=== PATIENT | female | born 1950 | race Caucasian/White ===

== ENCOUNTER → 2017-11-18 | Outpatient (CLI) | payer MEDICARE ==
[~2017-11-18] MED LIST: CEPH-368 PO; HYDR-882 PO; ONDA4TAB7 PO; SERT100T PO
== END | disposition home or self-care (01) ==
LOC: CFH 10:25
PROVIDERS: ATTEND Internal Medicine Gastroenterology
DX: R15.9 Full incontinence of feces (principal); R19.4 Change in bowel habit; R14.0 Abdominal distension (gaseous); R12 Heartburn
CPT/HCPCS: 74018

== ENCOUNTER → 2017-12-22 | Outpatient (CLI) | payer MEDICARE | END | disposition home or self-care (01) | LOC: CFH 12:57 | PROVIDERS: ATTEND Obstetrics & Gynecology | DX: N63.12 Unspecified lump in the right breast, upper inner quadrant (principal); Z86.000 Personal history of in-situ neoplasm of breast; Z90.12 Acquired absence of left breast and nipple | CPT/HCPCS: 77065 ==

== ENCOUNTER → 2018-03-18 | Outpatient (CLI) | payer MEDICARE ==
[~2018-03-18] MED LIST changes: +OMNIPAQUE 350 MG/ML, 75ML BOTTLE ONE
== END | disposition home or self-care (01) ==
LOC: CFH 12:05
PROVIDERS: ATTEND Nurse Practitioner Family
DX: D25.0 Submucous leiomyoma of uterus (principal); N83.201 Unspecified ovarian cyst, right side; N83.202 Unspecified ovarian cyst, left side; J98.11 Atelectasis; J84.10 Pulmonary fibrosis, unspecified; Z90.12 Acquired absence of left breast and nipple
CPT/HCPCS: 71260; 76830; 82565; Q9967

== ENCOUNTER 2018-04-08 10:16 | Day surgery (SDC) | payer MEDICARE ==
[~2018-04-08] VITALS: Ht 167.6 cm; Wt 71.0 kg
[~2018-04-08 10:16] MED LIST changes: +CALCIUM PO; +CHOL10002 PO; +MAGNESIUM PO; -OMNIPAQUE 350 MG/ML, 75ML BOTTLE ONE; +ROSU10TA PO; +UBID100C19 PO
[2018-04-08 10:53] VITALS: BP 128/84
[2018-04-08] MEDS ORDERED: ONDANSETRON ODT 8 MG PO ONE (11:00)
[2018-04-08] MEDS ORDERED: GABAPENTIN 300 MG CAPSULE PO ONE (11:00)
[2018-04-08] MEDS ORDERED: ACETAMINOPHEN 500 MG TABLET PO ONE (11:00)
[2018-04-08] MEDS ORDERED: OxyconTIN ER 10 MG TAB.ER PO ONE (11:00)
[2018-04-08] MEDS ORDERED: MIDAZOLAM 1 MG/ML, 2ML ONE (11:18)
[2018-04-08] MEDS ORDERED: FENTANYL PF 250 MCG/5ML ONE (11:18)
[2018-04-08] MEDS ORDERED: NEOSTIGMINE 1 MG/ML, 10ML ONE (11:19)
[2018-04-08] MEDS ORDERED: GLYCOPYRROLATE 0.4 MG/2 ML, 2ML ONE ×2 (11:19→12:38)
[2018-04-08] MEDS ORDERED: ROCURONIUM 10MG/ML,5ML ONE (11:19)
[2018-04-08] MEDS ORDERED: LACTATED RINGERS 1,000 ML IV SCH (11:21)
[2018-04-08] MEDS ORDERED: PROPOFOL 10 MG/ML, 20ML ONE (11:22)
[2018-04-08] MEDS ORDERED: BUPIVACAINE 0.25% ONE (11:34)
[2018-04-08] MEDS ORDERED: SILVER NITRATE STICK TP ONE (11:35)
[2018-04-08] MEDS ORDERED: ONDANSETRON 2MG/ML, 2ML ONE (11:56)
[2018-04-08] MEDS ORDERED: KETOROLAC 30 MG/1 ML ONE (11:56)
[2018-04-08] MEDS ORDERED: DEXAMETHASONE 4 MG/ML, 1ML ONE ×2 (11:56)
[2018-04-08] MEDS ORDERED: PROMETHAZINE 25 MG/ML, 1ML IV PRN (12:00)
[2018-04-08] MEDS ORDERED: ONDANSETRON 2MG/ML, 2ML IV PRN (12:00)
[2018-04-08] MEDS ORDERED: OXYcodone 5 MG/5 ML ORAL.SOL UDC PO PRN (12:00)
[2018-04-08] MEDS ORDERED: PROMETHAZINE 25 MG SUPP PR PRN (12:00)
[2018-04-08] MEDS ORDERED: LABETALOL 5MG/ML, 20ML IV PRN (12:00)
[2018-04-08] MEDS ORDERED: ACETAMINOPHEN 325 MG TABLET PO PRN (12:00)
[2018-04-08] MEDS ORDERED: FENTANYL PF 100 MCG/2ML IV PRN (12:00)
[2018-04-08] MEDS ORDERED: ONDANSETRON ODT 8 MG PO PRN (12:00)
[2018-04-08] MEDS ORDERED: HYDROmorphone 1 MG/ML, 1ML IV PRN (12:00)
[2018-04-08] MEDS ORDERED: hydrALAzine 20 MG/ML, 1ML IV PRN (12:00)
[2018-04-08] MEDS ORDERED: PROMETHAZINE 12.5 MG SUPP PR PRN (12:00)
[2018-04-08] MEDS ORDERED: MEPERIDINE/PF 25MG/0.5ML IVPush PRN (12:00)
[2018-04-08] MEDS ORDERED: OXYcodone 5 MG/5 ML ORAL.SOL UDC ONE (13:16)
== END 2018-04-08 18:15 | disposition home or self-care (01) ==
LOC: OUT 10:16
PROVIDERS: ATTEND Obstetrics & Gynecology
DX: N83.292 Other ovarian cyst, left side (principal); N83.291 Other ovarian cyst, right side; N83.8 Other noninflammatory disorders of ovary, fallopian tube and broad ligament; E78.5 Hyperlipidemia, unspecified; F32.9 Major depressive disorder, single episode, unspecified; Z88.5 Allergy status to narcotic agent; Z98.890 Other specified postprocedural states; M81.0 Age-related osteoporosis without current pathological fracture; Z90.49 Acquired absence of other specified parts of digestive tract; Z87.891 Personal history of nicotine dependence; Z85.3 Personal history of malignant neoplasm of breast; Z90.12 Acquired absence of left breast and nipple; Z83.3 Family history of diabetes mellitus; Z83.6 Family history of other diseases of the respiratory system; Z82.49 Family history of ischemic heart disease and other diseases of the circulatory system; Z79.899 Other long term (current) drug therapy
CPT/HCPCS: 58661; 88305; 93005; J1100; J1885; J2250; J2405; J2704; J2710; J3010; J3490; J7120; Q0162

== ENCOUNTER → 2018-06-07 | Outpatient (CLI) | payer MEDICARE ==
[~2018-06-07] MED LIST changes: +HYDR-3653 PO; -HYDR-882 PO; +REGADENOSON 0.4 MG/5 ML SYRINGE ONE; +UBID100C10 PO; -UBID100C19 PO
== END | disposition home or self-care (01) ==
LOC: CFH 07:43
PROVIDERS: ATTEND Internal Medicine Cardiovascular Disease
DX: I08.0 Rheumatic disorders of both mitral and aortic valves (principal); E78.5 Hyperlipidemia, unspecified; R00.1 Bradycardia, unspecified; C50.919 Malignant neoplasm of unspecified site of unspecified female breast; Z87.891 Personal history of nicotine dependence
CPT/HCPCS: 78452; 93017; 93306; A9502; J2785

== ENCOUNTER 2018-07-27 10:16 | Inpatient (IN) | payer MEDICARE ==
[2018-07-25 08:45] LABS: BASOPHILS # (AUTO) 0.02 x10^3/uL (0-0.1); BASOPHILS % (AUTO) 1 % (0-1); EOSINOPHILS # (AUTO) 0.13 x10^3/uL (0-0.4); EOSINOPHILS % (AUTO) 3 % (1-7); LYMPHOCYTES # (AUTO) 1.55 x10^3/uL (1-3.4); LYMPHOCYTES % (AUTO) 33 % (22-44); MD NO; MEAN CORPUSCULAR HEMOGLOBIN 27.6 pg (27.0-34.8); MEAN CORPUSCULAR HGB CONC 33.3 g/dL (32.4-35.8); MEAN CORPUSCULAR VOLUME 82.8 fL (80-100); MEAN PLATELET VOLUME 8.1 fL (7.4-10.4); MONOCYTES # (AUTO) 0.41 x10^3/uL (0.2-0.8); MONOCYTES % (AUTO) 9 % (2-9); NEUTROPHILS # (AUTO) 2.55 x10^3/uL (1.8-6.8); NEUTROPHILS % (AUTO) 55 % (42-75); PLATELET COUNT 260 x10^3/uL (130-400); RED BLOOD COUNT 5.01 x10^6/uL (3.82-5.3); RED CELL DISTRIBUTION WIDTH 18.2 % (9.6-15.2)
[2018-07-25 08:53] LABS: ALANINE AMINOTRANSFERASE 31 U/L (12-78); ALBUMIN 3.5 g/dL (3.4-5.0); ANION GAP 5 mmol/L (5-15); CALCIUM 8.8 mg/dL (8.5-10.1); CHLORIDE 105 mmol/L (98-107); CREATININE 0.75 mg/dL (0.55-1.02)
[2018-07-25 08:56] LABS: ALKALINE PHOSPHATASE 48 U/L (45-117); BILIRUBIN,TOTAL 0.4 mg/dL (0.2-1.0)
[~2018-07-27] VITALS: Ht 167.6 cm; Wt 72.5 kg
[~2018-07-27 10:16] MED LIST changes: +BIOTIN PO; +KRILL OIL PO; +LACT1CAP4 PO; -REGADENOSON 0.4 MG/5 ML SYRINGE ONE
[2018-07-27] MEDS ORDERED: CEFAZOLIN PMX 1GM/50ML 50 ML IVPB ONE (11:00)
[2018-07-27] MEDS ORDERED: MIDAZOLAM 1 MG/ML, 2ML ONE (12:14)
[2018-07-27] MEDS ORDERED: LIDOCAINE/PF 1%, 30ML ONE (12:15)
[2018-07-27] MEDS ORDERED: CEFAZOLIN PMX 1GM/50ML 50 ML ONE (12:15)
[2018-07-27] MEDS ORDERED: CEFAZOLIN 1,000 MG ONE (12:15)
[2018-07-27] MEDS ORDERED: FENTANYL PF 100 MCG/2ML ONE (12:15)
[2018-07-27] MEDS ORDERED: HOLD MEDICATION MC PRN (14:00)
[2018-07-27] MEDS ORDERED: HYDROcodone/APAP 5/325 TABLET PO PRN (14:00)
[2018-07-27] MEDS ORDERED: ZOLPIDEM 5MG TABLET PO PRN (14:00)
[2018-07-27] MEDS ORDERED: ONDANSETRON 2MG/ML, 2ML IV PRN (14:00)
[2018-07-27] MEDS ORDERED: ACETAMINOPHEN 325 MG TABLET ONE (15:35)
[2018-07-27] MEDS: ACETAMINOPHEN 325 MG TABLET PO PRN ×2 (15:42→20:59)
[2018-07-27] MEDS: SODIUM CHLORIDE 0.9% 1,000 ML IV SCH ×2 (17:16→17:17)
[2018-07-27 17:23] VITALS: BP 155/81
[2018-07-27 19:20] VITALS: BP 131/81
[2018-07-27] MEDS: SODIUM CHLORIDE FLUSH 10ML SYR IVF SCH (20:57)
[2018-07-27] MEDS: CEFAZOLIN PMX 1GM/50ML 50 ML IVPB SCH (20:58)
[2018-07-27] MEDS ORDERED: ROSUVASTATIN CALCIUM 10 MG PO SCH (21:00)
[2018-07-28] VITALS: BP 143/80
[2018-07-28] MEDS: SODIUM CHLORIDE 0.9% 1,000 ML IV SCH ×2 (02:20→07:39)
[2018-07-28] MEDS: ACETAMINOPHEN 325 MG TABLET PO PRN ×2 (02:27→07:42)
[2018-07-28] MEDS: CEFAZOLIN PMX 1GM/50ML 50 ML IVPB SCH ×2 (05:01→11:19)
[2018-07-28 07:06] VITALS: BP 129/82
[2018-07-28] MEDS: SODIUM CHLORIDE FLUSH 10ML SYR IVF SCH (07:39)
[2018-07-28] MEDS ORDERED: LACTOBACILLUS CHEW TABLET PO SCH (09:00)
[2018-07-28] MEDS ORDERED: MAGNESIUM OXIDE 400 MG TABLET PO SCH (09:00)
[2018-07-28] MEDS ORDERED: UBIDECARENONE 300 MG PO SCH (09:00)
[2018-07-28] MEDS ORDERED: CHOLECALCIFEROL 1,000 UNIT TABLET PO SCH (09:00)
[2018-07-28] MEDS ORDERED: ACET325T14 PO (10:15)
[2018-07-28] MEDS ORDERED: ROSUVASTATIN CALCIUM 10 MG PO SCH (21:00)
[2018-07-28] MEDS ORDERED: ATORVASTATIN 40 MG TABLET PO SCH (21:00)
== END 2018-07-28 11:42 | disposition home or self-care (01) | DRG 242 ==
LOC: CACL 10:16 → ORIP 13:38 → 5SO 17:00 → DCLOUNGE 07-28 11:30
PROVIDERS: ADMIT Internal Medicine Cardiovascular Disease; ATTEND Internal Medicine Cardiovascular Disease
PROC: 0JH606Z Insertion of Pacemaker, Dual Chamber into Chest Subcutaneous Tissue and Fascia, Open Approach (ICD-10-PCS; principal; 2018-07-27)
PROC: 02HK3JZ Insertion of Pacemaker Lead into Right Ventricle, Percutaneous Approach (ICD-10-PCS; 2018-07-27)
PROC: 02H63JZ Insertion of Pacemaker Lead into Right Atrium, Percutaneous Approach (ICD-10-PCS; 2018-07-27)
DX: I49.5 Sick sinus syndrome (principal); J96.21 Acute and chronic respiratory failure with hypoxia; I35.1 Nonrheumatic aortic (valve) insufficiency; E78.00 Pure hypercholesterolemia, unspecified; E11.9 Type 2 diabetes mellitus without complications; I25.10 Atherosclerotic heart disease of native coronary artery without angina pectoris; Z88.6 Allergy status to analgesic agent
CPT/HCPCS: 33208; 36415; 71045; 71046; 80053; 85025; 93005; 99156; 99157; C1779; C1785; C1892; G0378; J0690; J2250; J3010; J3490; Q9967

== ENCOUNTER 2019-12-19 13:29 | Outpatient (CLI) | payer MEDICARE ==
[~2019-12-19 13:29] MED LIST changes: +ACET325T14 PO; -ROSU10TA PO; +ROSU10TA2 PO
== END 2019-12-19 23:59 | disposition home or self-care (01) ==
LOC: CFH 13:29
PROVIDERS: ATTEND Internal Medicine Cardiovascular Disease
DX: I08.3 Combined rheumatic disorders of mitral, aortic and tricuspid valves (principal); I25.10 Atherosclerotic heart disease of native coronary artery without angina pectoris
CPT/HCPCS: 93306; 93356

== ENCOUNTER → 2020-06-20 | Outpatient (CLI) | payer MEDICARE | END | disposition home or self-care (01) | LOC: CFH 08:07 | PROVIDERS: ATTEND Internal Medicine Cardiovascular Disease | DX: I10 Essential (primary) hypertension (principal); I25.10 Atherosclerotic heart disease of native coronary artery without angina pectoris | CPT/HCPCS: 78452; 93017; A9502 ==

== ENCOUNTER → 2021-01-22 | Outpatient (CLI) | payer MEDICARE | END | disposition home or self-care (01) | LOC: RAD 14:37 | PROVIDERS: ATTEND Orthopaedic Surgery | DX: S76.111A Strain of right quadriceps muscle, fascia and tendon, initial encounter (principal); M22.41 Chondromalacia patellae, right knee; M25.461 Effusion, right knee; X58.XXXA Exposure to other specified factors, initial encounter; Y93.89 Activity, other specified; Y92.89 Other specified places as the place of occurrence of the external cause; Y99.8 Other external cause status ==

== ENCOUNTER → 2021-03-04 | Outpatient (CLI) | payer MEDICARE | END | disposition home or self-care (01) | LOC: CFH 09:52 | PROVIDERS: ATTEND Internal Medicine Cardiovascular Disease | DX: I25.10 Atherosclerotic heart disease of native coronary artery without angina pectoris (principal); E78.00 Pure hypercholesterolemia, unspecified; I77.819 Aortic ectasia, unspecified site; K44.9 Diaphragmatic hernia without obstruction or gangrene | CPT/HCPCS: 75571 ==

== ENCOUNTER → 2021-03-10 | Outpatient (CLI) | payer MEDICARE | END | disposition home or self-care (01) | LOC: CFH 08:53 | PROVIDERS: ATTEND Obstetrics & Gynecology Gynecology | DX: Z12.31 Encounter for screening mammogram for malignant neoplasm of breast (principal) | CPT/HCPCS: 77063; 77067 ==